=== PATIENT | female | born 1955 | race Caucasian/White ===

== ENCOUNTER 2016-02-11 20:17 | Emergency (ER) | payer OTHER ==
[~2016-02-11] VITALS: Ht 157.5 cm; Wt 153.0 kg
[~2016-02-11 20:17] MED LIST: ASPI-664 PO; ATOR40TA68 PO; CLOP75TA28 GTB; FURO40SO PO; GABA300C16 PO; IBUP-1542 PO; IPRA3AMP HHN; LANT3I SC; LEVO750T25 PO; NOVO3I SC; [UNRECOGNIZED DRUG - CODE] TP
[2016-02-11 20:48] VITALS: Ht 157.5 cm; Wt 153.0 kg
[2016-02-11] MEDS ORDERED: morphine 4 MG/ML VIAL IV STA (21:12)
[2016-02-11] MEDS ORDERED: ONDANSETRON 4 MG INJ IV STA (21:12)
[2016-02-11 21:20] LABS: ADD UMIC YES; URINE BILIRUBIN (Dip) NEGATIVE (NEGATIVE); URINE BLOOD (Dip) 3+ (NEGATIVE); URINE COLOR LT. YELLOW (YELLOW); URINE KETONES (Dip) NEGATIVE (NEGATIVE); URINE LEUKOCYTE ESTERASE (Dip) NEGATIVE (NEGATIVE); URINE NITRITE (Dip) NEGATIVE (NEGATIVE); URINE TOTAL PROTEIN (Dip) NEGATIVE (NEGATIVE); URINE UROBILINOGEN (Dip) 0.2 E.U./dL (0.1-1.0)
[2016-02-11 21:22] LABS: BASOPHIL # 0.1 10^3/ul (0.0-0.1); BASOPHILS % 0.9 % (0.0-2.0); EOSINOPHILS # 0.2 10^3/ul (0.0-0.5); EOSINOPHILS % 2.4 % (0.0-7.0); HEMATOCRIT 36.3 % (37.0-47.0); LYMPHOCYTES # 1.6 10^3/ul (0.8-2.9); LYMPHOCYTES % 23.1 % (15.0-51.0); MEAN CORPUSCULAR HEMOGLOBIN 28.5 pg (29.0-33.0); MEAN CORPUSCULAR HGB CONC 33.1 g/dl (32.0-37.0); MEAN CORPUSCULAR VOLUME 86.2 fl (82.0-101.0); MEAN PLATELET VOLUME 9.1 fl (7.4-10.4); MONOCYTE # 0.5 10^3/ul (0.3-0.9); NEUTROPHIL # 4.6 10^3/ul (1.6-7.5); NEUTROPHILS % 66.6 % (39.0-77.0); PLATELET COUNT 121 10^3/UL (140-440); RED BLOOD COUNT 4.21 10^6/ul (4.20-5.40); RED CELL DISTRIBUTION WIDTH 16.8 % (11.5-14.5); UNCORRECTED WBC 6.8 10^3/ul (4.8-10.8); WHITE BLOOD COUNT 6.8 10^3/ul (4.8-10.8)
[2016-02-11 21:24] LABS: CONDITION 1
[2016-02-11 21:25] LABS: LH ANALYZER COMMENTS 1
[2016-02-11 21:27] LABS: INR 1.1; PROTIME 14.2 Sec (12.2-14.2); PT RATIO 1.1
[2016-02-11 21:28] LABS: PARTIAL THROMBOPLASTIN TIME 35.6 Sec (25.0-35.0)
[2016-02-11 21:29] LABS: URINE RBCS >200 /HPF (0)
[2016-02-11 21:30] LABS: ALBUMIN 3.4 g/dl (3.3-4.9); BACTERIA,URINE RARE; SQUAMOUS EPITHELIAL CELL,UR RARE
[2016-02-11 21:31] LABS: POTASSIUM 3.9 mmol/L (3.5-5.1)
[2016-02-11 21:33] LABS: BILIRUBIN,INDIRECT 0.7 mg/dl (0-1.1); BILIRUBIN,TOTAL 0.7 mg/dl (0.2-1.3); CREATININE 0.69 mg/dl (0.44-1.00)
[2016-02-11 21:34] LABS: ALBUMIN/GLOBULIN RATIO 0.87; CALCIUM 8.6 mg/dl (8.4-10.2); TOTAL PROTEIN 7.3 g/dl (6.1-8.1)
--- NOTE | 2016-02-11 22:13 | ERD ---
ER Documentation Chief Complaint Date/Time DATE: 02/11/16 TIME: 22:11 Chief Complaint sent from snf for hematuria; no report received HPI This is a 60-year-old female who presents to the emergency room for evaluation of hematuria. [facility], and states that she has been having blood in her urine for the past 2 days. The patient denies being on any blood thinners at this time and came in for evaluation. ROS All systems reviewed and are negative except as per history of present illness. Medications Home Meds Active Scripts Ipratropium-Albuterol (Ipratropium-Albuterol) 0.5-3 Mg/3 Ml Ampul.neb, 3 ML HHN Q4H RESP THERAPY Y for SHORTNESS OF BREATH for 30 Days Prov:TAL GUEVARA 01/26/16 Insulin Aspart* (Novolog Insulin Pen*) 100 Unit/Ml Soln, 0 UNIT SC WITH MEALS BEDTIME for 30 Days Prov:TAL GUEVARA 01/26/16 Furosemide* (Furosemide*) 40 Mg/5 Ml Solution, 40 MG PO BID, #60 ML Prov:TAL GUEVARA 01/26/16 Clopidogrel Bisulfate (Clopidogrel) 75 Mg Tablet, 75 MG GTB DAILY for 30 Days, TAB Prov:TAL GUEVARA 01/26/16 Atorvastatin* (Atorvastatin*) 40 Mg Tablet, 40 MG PO HS for 30 Days, TAB Prov:TAL GUEVARA 01/26/16 Aspirin* (Aspirin* EC) 81 Mg Tablet.dr, 162 MG PO DAILY for 30 Days Prov:TAL GUEVARA 01/26/16 Reported Medications Ammonium Lactate (Ammonium Lactate) 140 Gm Cream.gm., 140 GM TP BID 01/15/16 Gabapentin* (Gabapentin*) 300 Mg Capsule, 300 MG PO QHS, #30 CAP 01/15/16 Ibuprofen* (Ibuprofen*) 600 Mg Tablet, 600 MG PO TID Y for prn, TAB 01/15/16 Insulin Glargine* (Lantus*) 100 Unit/Ml Soln, 85 UNIT SC QHS, #1 VIAL 01/15/16 Discontinued Scripts Levofloxacin* (Levaquin*) 750 Mg Tablet, 750 MG PO DAILY@06 for 5 Days, TAB Prov:TAL GUEVARA 01/26/16 Allergies Allergies: Coded Allergies: codeine (Verified Allergy, Mild, 02/11/16) egg (Verified Allergy, Unknown, 02/11/16) PMhx/Soc History of Surgery: Yes (Cholecystectomy, hysterectomy) Anesthesia Reaction: No Hx Neurological Disorder: No Hx Respiratory Disorders: Yes (asthma) Hx Cardiac Disorders: Yes (htn hyperlipidemia) Hx Psychiatric Problems: Yes (bipolar , schizophrenia) Hx Miscellaneous Medical Probl: Yes (Morbid obesity, HTN,sacral ulcer, asthma, high cholesterol,schizophrenia,DM) Hx Alcohol Use: No Hx Substance Use: No Hx Tobacco Use: No Smoking Status: Unknown if ever smoked Physical Exam Vitals Vital Signs Date Time Temp Pulse Resp B/P Pulse Ox O2 Delivery O2 Flow Rate FiO2 02/11/16 20:48 98.4 106 20 126/76 91 Physical Exam INITIAL VITAL SIGNS: Reviewed by me GENERAL: The patient is well developed and appropriate for usual state of health in no apparent distress HEENT: Pupils equal, round, and reactive to light. EOMI. There is no scleral icterus. NECK: C-spine is soft and supple, there is no meningismus. There is no cervical lymphadenopathy. LUNGS: Clear to auscultation bilaterally. There are no rales, wheezes or rhonchi. HEART: Regular rate and rhythm, no murmurs, clicks, rubs or gallops. ABDOMEN: Obese limiting exam, soft, non-tender, non-distended. There are bowel sounds in all four quadrants. No rebound or guarding. EXTREMITIES: There is no peripheral cyanosis or edema. No focal swelling or erythema. NEUROLOGICAL: The patient moves all four extremities with 5/5 strength. Cranial nerves II - XII are intact. Normal gait. Alert and oriented SKIN: There is no apparent rash or petechiae. HEME/LYMPHATIC: There is no evidence of excessive bruising or lymphedema. PSYCHIATRIC: The patient does not appear anxious or depressed. Result Diagram: 02/11/16210602/11/162106 Results 24 hrs Laboratory Tests Test 02/11/16 21:07 Activated Partial Thromboplast Time 35.6Sec Alanine Aminotransferase (ALT/SGPT) 24IU/L Albumin 3.4g/dl Albumin/Globulin Ratio 0.87 Alkaline Phosphatase 233IU/L Anion Gap 13 Aspartate Amino Transf (AST/SGOT) 39IU/L Basophils # 0.110^3/ul Basophils % 0.9% Blood Morphology Comment Blood Urea Nitrogen 12mg/dl Calcium Level 8.6mg/dl Carbon Dioxide Level 37mmol/L Chloride Level 91mmol/L Creatinine 0.69mg/dl Direct Bilirubin 0.00mg/dl Eosinophils # 0.210^3/ul Eosinophils % 2.4% Globulin 3.90g/dl Glucose Level 345mg/dl Hematocrit 36.3% Hemoglobin 12.0g/dl INR International Normalized Ratio 1.10 Indirect Bilirubin 0.7mg/dl Lipase 71U/L Lymphocytes # 1.610^3/ul Lymphocytes % 23.1% Mean Corpuscular Hemoglobin 28.5pg Mean Corpuscular Hemoglobin Concent 33.1g/dl Mean Corpuscular Volume 86.2fl Mean Platelet Volume 9.1fl Monocytes # 0.510^3/ul Monocytes % 7.0% Neutrophils # 4.610^3/ul Neutrophils % 66.6% Nucleated Red Blood Cells # 0.010^3/ul Nucleated Red Blood Cells % 0.0/100WBC Platelet Count 39991^3/UL Potassium Level 3.9mmol/L Prothrombin Time 14.2Sec Prothrombin Time Ratio 1.1 Red Blood Count 4.2110^6/ul Red Cell Distribution Width 16.8% Sodium Level 137mmol/L Total Bilirubin 0.7mg/dl Total Protein 7.3g/dl Urine Bacteria RARE Urine Bilirubin NEGATIVE Urine Clarity S HAZY Urine Color LT. YELLOW Urine Glucose 0.25%% Urine Hemoglobin 3+ Urine Ketones NEGATIVE Urine Leukocyte Esterase NEGATIVE Urine Microscopic RBC >200/HPF Urine Microscopic WBC 0-2/HPF Urine Nitrite NEGATIVE Urine Specific [place] 1.010 Urine Squamous Epithelial Cells RARE Urine Total Protein NEGATIVE Urine Urobilinogen 0.2 E.U./dL Urine pH 7.5 White Blood Count 6.810^3/ul Current Medications Medications (Trade) Dose Ordered Sig/Anju Route PRN Reason Start Time Stop Time Status Last Admin Dose Admin Morphine Sulfate (morphine) 4 mg ONCE STAT IV 02/11/16 21:12 02/11/16 21:13 DC 02/11/16 21:19 Ondansetron HCl (Zofran Inj) 4 mg ONCE STAT IV 02/11/16 21:12 02/11/16 21:13 DC 02/11/16 21:19 Procedures/MDM CT abdomen pelvis without: Pending This 60-year-old female presents to the emergency room for evaluation of hematuria. This patient did have hematuria on her urinalysis in the emergency room, her hemoglobin is stable. She is not on any blood thinners at this time. CT of the abdomen and pelvis was obtained and she will be discharged home with a referral for outpatient urology assuming that there is no acute critical pathology on CAT scan. The patient is okay with the plan of care. Departure Diagnosis: Primary Impression: Hematuria Additional Impression: Hyperglycemia Condition: Stable FLY REILLY DO Feb 11, 2016 22:12
[2016-02-11] MEDS ORDERED: INSULIN REGULAR, HUMAN 100 UNIT/1 ML 3ML VIAL SC ONE (22:30)
--- NOTE | 2016-02-11 23:32 | RADRPT ---
PROCEDURE: CT Abdomen and pelvis without contrast. CLINICAL INDICATION: Abdominal pain. TECHNIQUE: CT scan of the abdomen and pelvis was performed on the [facility] [employer] 6 4 slice VCT scanner. Contiguous axial images using 2.5 mm slice thickness were obtained from the hanna ng bases to the ischial tuberosities without intravenous contrast. Coronal and sagittal reformatted images were also obtained. Images were reviewed on the PACS workstation. One or more of the following dose reduction techniques were used: - Automated exposure control. - Adjustment of the mA and/or kV according to patient size. - Use of iterative reconstruction technique. Exam CTD/vol = 23.71 mGy. Total exam DLP = 1398.63 mGy-cm. COMPARISON: None. FINDINGS: Evaluation of the lung bases demonstrates mild bibasilar atelectasis. Abdomen: The liver is normal in size with a mild diffuse nodular contour. There is no focal mass o r dilatation of the biliary tree. The patient is status post cholecystectomy. The spleen is pancre as and bilateral adrenal glands are within normal limits. Bilateral kidneys are normal in size with no contour deforming mass identified. There is a 5 x 4 mm calculus within the lower pole of the le ft kidney. There is no radiopaque ureteral calculus identified. There is no hydronephrosis or hydr oureter. There is no retroperitoneal adenopathy. The abdominal aorta is of normal caliber with mil d scattered atherosclerotic calcifications. There is moderate retained stool within the colon. There are mildly dilated loops of small bowel wi thin the left abdomen. There is no bowel obstruction or free air. A normal appendix is identified. There is no diverticulosis or diverticulitis. There is no ascites. Pelvis: The bladder contains a Leal catheter. The uterus is absent. There is no significant pelv ic adenopathy or free fluid. Evaluation of the osseous structures demonstrates no suspicious lytic or blastic lesion. IMPRESSION: Mildly dilated loops of small bowel within the left abdomen suggestive of an ileus. There is no yolanda l obstruction. Mild nodular contour of the liver suggestive of cirrhosis. Clinically correlate. Status post cholecystectomy. Moderate splenomegaly. Nonobstructing left renal calculus. Moderate retained stool within the colon. Vascular calcifications reflective of atherosclerosis. .Jg Abreu MD, MD Date Time Electronically viewed and signed by .Jg Abreu MD, MD on 02/11/2016 23:32 .T/
[2016-02-12 00:18] VITALS: BP 112/56; PULSE 73; RESP 19
== END 2016-02-12 00:18 | disposition home or self-care (01) ==
LOC: E/R 20:17
DX: R31.9 Hematuria, unspecified (principal); E11.65 Type 2 diabetes mellitus with hyperglycemia; J45.909 Unspecified asthma, uncomplicated; I10 Essential (primary) hypertension; E66.01 Morbid (severe) obesity due to excess calories; Z68.44 Body mass index [BMI] 60.0-69.9, adult; Z79.4 Long term (current) use of insulin; Z79.82 Long term (current) use of aspirin
CPT/HCPCS: 74176; 80053; 81001; 82962; 83690; 85025; 85610; 85730; J1815; J2270; J2405; 81003; 96372; 96374; 96375